=== PATIENT | male | born 1975 | race African-American/Black ===

== ENCOUNTER 2023-03-14 17:51 | Emergency (ER) | payer OTHER, SELFPAY ==
[2023-03-14 19:04] LABS: #Monocytes 0.2 10x3/uL (0.0-1.1); #Neutrophils 1.7 10x3/uL (1.5-8.4); %Basophils 1.2 % (0.0-2.0); %Eosinophils 0.6 % (0.0-6.0); %Lymphocytes 39.3 % (18.0-47.0); %Monocytes 6.6 % (0.0-10.0); Hematocrit 31.9 % (38.8-50.0); Hemoglobin 11.5 g/dL (13.5-17.5); Mean Corpuscular HGB CONC 36.1 g/dL (32.0-36.0); Mean Corpuscular Hemoglobin 36.3 pg (27.0-33.0); Mean Corpuscular Volume 100.6 fl (81.2-95.1); Mean Platelet Volume 10.9 fl (7.4-10.4); Platelet Count 105 10x3/uL (150-450); RBC Distribution Width 14.6 % (11.5-14.5); Red Blood Cell (RBC) Count 3.17 10x6/uL (4.32-5.72); White Blood Cell (WBC) Count 3.3 10x3/uL (3.5-10.5)
[2023-03-14 19:07] LABS: Acetaminophen Less than 10 mcg/mL (10.0-30.0); Alcohol 303.5 mg/dL (Less than 10); Salicylate Less than 8.0 mg/dL (15.0-30.0)
[2023-03-14 19:08] LABS: ALT (SGPT) 42 U/L (8-55); AST (SGOT) 104 U/L (5-34); Alkaline Phosphatase 79 U/L (40-110); Anion Gap 16 mmol/L (10-20); BUN (Urea Nitrogen) 13 mg/dL (8.9-20.6); Calc. Creatinine Clearance 0 mL/min (70-130); Calcium 8.6 mg/dL (7.8-10.44); Carbon Dioxide 28 mmol/L (22-29); Chloride 98 mmol/L (98-107); Estimated GFR 72; Globulin 3.3 g/dL (2.4-3.5); Glucose 86 mg/dL (70-105); Potassium 3.4 mmol/L (3.5-5.1); Protein, Total 7.3 g/dL (6.0-8.3); Sodium 139 mmol/L (136-145)
[2023-03-14 19:44] LABS: RBC Morph Comment Within Normal Limits
[2023-03-14 19:45] LABS: Platelet Adequacy Comment PLT clumps seen-LOW; Platelet Clumps MODERATE
[2023-03-14] MEDS ORDERED: chlordiazePOXIDE HCl 25 MG CAP ONE (20:52)
== END 2023-03-14 23:07 | disposition home or self-care (01) ==
LOC: CSHERS 17:51
DX: F10.129 Alcohol abuse with intoxication, unspecified (principal); I50.9 Heart failure, unspecified; F17.290 Nicotine dependence, other tobacco product, uncomplicated
CPT/HCPCS: 36415; 80053; 80307; 85025; 93005

== ENCOUNTER 2023-03-15 12:07 | Emergency (ER) | payer OTHER ==
[2023-03-15 13:27] LABS: %Lymphocytes 7.9 % (18.0-47.0); %Neutrophils 87.6 % (40.0-75.0); Hematocrit 31.4 % (38.8-50.0); Hemoglobin 11.1 g/dL (13.5-17.5); Mean Corpuscular HGB CONC 35.4 g/dL (32.0-36.0); Mean Corpuscular Hemoglobin 36.6 pg (27.0-33.0); Mean Corpuscular Volume 103.6 fl (81.2-95.1); Mean Platelet Volume 10.7 fl (7.4-10.4); Platelet Count 159 10x3/uL (130-400); RBC Distribution Width 15.1 % (11.5-14.5); Red Blood Cell (RBC) Count 3.03 10x6/uL (4.32-5.72); White Blood Cell (WBC) Count 7.1 10x3/uL (3.5-10.5)
[2023-03-15 13:28] LABS: #Monocytes 0.3 10x3/uL (0.0-1.1); #Neutrophils 6.2 10x3/uL (1.5-8.4); %Basophils 0.4 % (0.0-2.0); %Eosinophils 0.1 % (0.0-6.0); %Monocytes 3.9 % (0.0-10.0)
[2023-03-15] MEDS ORDERED: Phenylephrine 10 MG/ML VIAL ONE (13:31)
[2023-03-15] MEDS ORDERED: Phenylephrine 10 MG/ML VIAL IM SCH (13:45)
[2023-03-15 13:47] LABS: INR-International Normal Ratio 1.1; PTT 26.5 sec (22.0-33.0); Prothrombin Time 11.4 sec (9.5-12.1)
[2023-03-15 14:08] LABS: Acetaminophen Less than 10 mcg/mL (10.0-30.0); Carbon Dioxide 25 mmol/L (22-29); Chloride 99 mmol/L (98-107); Potassium 3.5 mmol/L (3.5-5.1); Salicylate Less than 8.0 mg/dL (15.0-30.0); Sodium 139 mmol/L (136-145)
[2023-03-15 14:09] LABS: ALT (SGPT) 38 U/L (8-55); AST (SGOT) 90 U/L (5-34); Albumin 3.9 g/dL (3.5-5.0); Alkaline Phosphatase 83 U/L (40-110); Anion Gap 19 mmol/L (10-20); BUN (Urea Nitrogen) 13 mg/dL (8.9-20.6); Calc. Creatinine Clearance 0 mL/min (70-130); Calcium 8.5 mg/dL (7.6-10.4); Estimated GFR 69; Globulin 3.2 g/dL (2.4-3.5); Glucose 88 mg/dL (70-105); Protein, Total 7.1 g/dL (6.0-8.3)
[2023-03-15] MEDS ORDERED: CEFAZOLIN 2 GM VIAL ONE (14:22)
[2023-03-15 14:27] LABS: Bilirubin Neg (Negative); Blood, Urine Negative (Negative); Clarity Clear (Clear); Glucose, Urine (Dipstick) Normal (Negative); Ketone, Urine Negative (Negative); Leukocyte Negative (Negative); Nitrite Negative (Negative); Protein, Urine (Dipstick) Negative (Neg-Trace); Specific Gravity, Urine 1.005 (1.005-1.030); Urobilinogen Normal mg/dL (Less than 2); pH, Urine 6.5 (5.0-9.0)
[2023-03-15] MEDS ORDERED: Morphine 2 MG/ML VIAL ONE (14:34)
[2023-03-15 14:35] LABS: Bacteria/HPF None Seen HPF (None Seen); CAUTI Indications for Culture Pelvic or flank pain; RBC/HPF None Seen HPF (0-3); Squamous Epithelial None Seen HPF (0-3); WBC/HPF None Seen HPF (0-3)
[2023-03-15 14:37] LABS: Amphetamine Not Detected (NotDetected); Barbiturates Screen Not Detected (NotDetected); Benzodiazepine Screen Not Detected (NotDetected); Cocaine Metabolite Screen Not Detected (NotDetected); Methadone Not Detected (NotDetected); Methamphetamine Not Detected (NotDetected); Opiate Screen Not Detected (NotDetected); Oxycodone Screen Not Detected (NotDetected); Phencyclidine (PCP) Not Detected (NotDetected); THC/Cannabinoid Screen Not Detected (NotDetected); Tricyclic Screen Not Detected (NotDetected); Urine Culture Reflex No No
== END 2023-03-15 16:40 | disposition home or self-care (01) ==
LOC: CSHERS 12:07
DX: N48.30 Priapism, unspecified (principal); I50.9 Heart failure, unspecified; F17.290 Nicotine dependence, other tobacco product, uncomplicated
CPT/HCPCS: 36415; 80053; 80306; 80307; 81001; 85025; 85610; 85730; 93005; 96365; 96372; J2272; J2370

== ENCOUNTER 2023-09-19 10:01 | Inpatient (IN) | payer OTHER, SELFPAY ==
[2023-09-19] MEDS ORDERED: Nitroglycerin 2% Ointment 1 INCH/1 GM Packet ONE (10:43)
[2023-09-19 11:02] LABS: #Eosinphils 0.1 10x3/uL (0.0-0.5); #Monocytes 0.3 10x3/uL (0.0-1.1); #Neutrophils 2.4 10x3/uL (1.5-8.4); %Basophils 0.9 % (0.0-2.0); %Lymphocytes 36.5 % (18.0-47.0); %Monocytes 7.6 % (0.0-10.0); %Neutrophils 52.8 % (40.0-75.0); Hematocrit 35.5 % (38.8-50.0); Mean Corpuscular HGB CONC 36.6 g/dL (32.0-36.0); Mean Corpuscular Hemoglobin 36.5 pg (27.0-33.0); Mean Corpuscular Volume 99.7 fl (81.2-95.1); Mean Platelet Volume 9.9 fl (7.4-10.4); Platelet Count 232 10x3/uL (150-450); RBC Distribution Width 14.6 % (11.5-14.5); Red Blood Cell (RBC) Count 3.56 10x6/uL (4.32-5.72); White Blood Cell (WBC) Count 4.5 10x3/uL (3.5-10.5)
[2023-09-19 11:15] LABS: ALT (SGPT) 19 U/L (8-55); AST (SGOT) 37 U/L (5-34); Albumin 4.1 g/dL (3.5-5.0); Alkaline Phosphatase 73 U/L (40-110); Anion Gap 16 mmol/L (10-20); BUN (Urea Nitrogen) 14 mg/dL (8.9-20.6); Bilirubin, Total 0.4 mg/dL (0.2-1.2); Calc. Creatinine Clearance 0 mL/min (70-130); Calcium 8.4 mg/dL (7.8-10.44); Carbon Dioxide 26 mmol/L (22-29); Chloride 96 mmol/L (98-107); Estimated GFR 49; Globulin 2.8 g/dL (2.4-3.5); Glucose 93 mg/dL (70-105); Potassium 3.2 mmol/L (3.5-5.1); Protein, Total 6.9 g/dL (6.0-8.3); Sodium 135 mmol/L (136-145)
[2023-09-19 11:19] LABS: Troponin I 0.012 ng/mL (< 0.028)
[2023-09-19] MEDS ORDERED: Morphine 4 MG/ML VIAL ONE (12:12)
[2023-09-19] MEDS ORDERED: Furosemide 40 MG (4 mL) VIAL ONE (12:13)
[2023-09-19] MEDS ORDERED: Aspirin Chewable 81 MG TAB ONE (12:13)
[2023-09-19] MEDS ORDERED: Nitroglycerin 0.4 MG TAB (25 Tab Bottle) SL PRN (13:58)
[2023-09-19] MEDS ORDERED: Nicotine 14 MG PATCH TD PRN (13:58)
[2023-09-19] MEDS ORDERED: Lorazepam 2 MG/ML VIAL IM PRN (14:01)
[2023-09-19 14:09] LABS: Troponin I 0.019 ng/mL (< 0.028)
[2023-09-19 14:18] LABS: Magnesium 1.5 mg/dL (1.6-2.6)
[2023-09-19] MEDS ORDERED: Magnesium Sulfate 4 GM in Sodium Chloride 0.9% 250 ML 250 ML IVPB SCH (14:30)
[2023-09-19 14:53] LABS: Amphetamine Not Detected (NotDetected); Barbiturates Screen Not Detected (NotDetected); Benzodiazepine Screen Not Detected (NotDetected); Cocaine Metabolite Screen Not Detected (NotDetected); Methadone Not Detected (NotDetected); Methamphetamine Not Detected (NotDetected); Opiate Screen Detected (NotDetected); Oxycodone Screen Not Detected (NotDetected); Phencyclidine (PCP) Not Detected (NotDetected); THC/Cannabinoid Screen Not Detected (NotDetected); Tricyclic Screen Not Detected (NotDetected)
[2023-09-19] MEDS: Magnesium 2 GM/50 ML(in water) 2 GM in Premix 1 BAG IVPB SCH (16:00)
[2023-09-19] MEDS: Thiamine HCl 200 MG/2 ML VIAL SLOW IVP SCH (16:02)
[2023-09-19] MEDS: Potassium Chloride 20 MEQ TAB PO SCH ×2 (16:04→16:05)
[2023-09-19] MEDS ORDERED: Communication Order-Pharmacy FS SCH (16:45)
[2023-09-19] MEDS: Carvedilol 6.25 MG TAB PO SCH (17:04)
[2023-09-19 17:45] LABS: Troponin I 0.015 ng/mL (< 0.028)
[2023-09-19] MEDS: Acetaminophen 325 MG TAB PO PRN (21:46)
[2023-09-19] MEDS: Nitroglycerin 2% Ointment 1 INCH/1 GM Packet TOP SCH (21:47)
[2023-09-19] MEDS: Atorvastatin Calcium 40 MG TAB PO SCH (21:47)
[2023-09-19] MEDS: Lorazepam 1 MG TAB PO PRN (21:49)
[2023-09-20 05:40] LABS: Hematocrit 38.4 % (38.8-50.0); Hemoglobin 13.5 g/dL (13.5-17.5); Mean Corpuscular HGB CONC 35.2 g/dL (32.0-36.0); Mean Corpuscular Hemoglobin 35.5 pg (27.0-33.0); Mean Corpuscular Volume 101.1 fl (81.2-95.1); Mean Platelet Volume 10.2 fl (7.4-10.4); Platelet Count 233 10x3/uL (150-450); White Blood Cell (WBC) Count 6.5 10x3/uL (3.5-10.5)
[2023-09-20] MEDS: Aspirin Chewable 81 MG TAB PO SCH (05:45)
[2023-09-20] MEDS: Folic Acid 1 MG TAB PO SCH (05:45)
[2023-09-20 05:49] LABS: PTT 28.6 sec (22.0-33.0); Prothrombin Time 10.8 sec (9.5-12.1)
[2023-09-20 05:53] LABS: MDiff Complete? YES
[2023-09-20 05:57] LABS: Band 1 % (5-11); Lymphocytes 14 % (21-51); Monocytes 3 % (0-10); Neutrophil 82 % (42-75)
[2023-09-20 05:59] LABS: Platelet Adequacy Comment Appears Adequate; Stomatocytes SLIGHT = 2-5 cells (100X) (0-1/hpf)
[2023-09-20 06:11] LABS: ALT (SGPT) 24 U/L (8-55); AST (SGOT) 65 U/L (5-34); Alkaline Phosphatase 93 U/L (40-110); Anion Gap 18 mmol/L (10-20); BUN (Urea Nitrogen) 15 mg/dL (8.9-20.6); Bilirubin, Total 1.1 mg/dL (0.2-1.2); Calc. Creatinine Clearance 72 mL/min (70-130); Calcium 9.1 mg/dL (7.8-10.44); Carbon Dioxide 24 mmol/L (22-29); Cardiac Risk 2.6 (Less than 4.5); Chloride 96 mmol/L (98-107); Cholesterol 201 mg/dl (< 200 Desired); Estimated GFR 52; Globulin 3.1 g/dL (2.4-3.5); Glucose 102 mg/dL (70-105); HDL Cholesterol 76 mg/dL (>60 Neg Risk); LDL Cholesterol, Calculated 111 mg/dL; Potassium 3.8 mmol/L (3.5-5.1); Protein, Total 7.1 g/dL (6.0-8.3); Sodium 134 mmol/L (136-145); Triglycerides 69 mg/dL (Less than 150)
[2023-09-20] MEDS: Furosemide 40 MG (4 mL) VIAL SLOW IVP SCH (06:15)
[2023-09-20] MEDS ORDERED: Heparin 10,000 UNITS/ 10 ML VIAL ONE ×3 (08:02→11:14)
[2023-09-20] MEDS ORDERED: Adenosine 6 mg (2 mL) VIAL ONE (08:02)
[2023-09-20] MEDS ORDERED: Nitroglycerin 50 MG/250 ML BOT 250 ML ONE (08:02)
[2023-09-20] MEDS ORDERED: Lidocaine 1% (PF) 30 ML VIAL ONE (08:02)
[2023-09-20] MEDS ORDERED: Enoxaparin 40 MG (0.4 mL) SYRINGE SC SCH (09:00)
[2023-09-20] MEDS ORDERED: Furosemide 20 MG (2 mL) VIAL SLOW IVP SCH (09:00)
[2023-09-20] MEDS ORDERED: Midazolam HCl 2 mg/2 ml Vial ONE (09:36)
[2023-09-20] MEDS ORDERED: fentaNYL 50 mcg/mL 1 mL Vial ONE (09:36)
[2023-09-20] MEDS ORDERED: Verapamil 5 MG/2 ML VIAL ONE (09:36)
[2023-09-20] MEDS ORDERED: TICAGRELOR 90 MG TABLET ONE (10:38)
[2023-09-20] MEDS ORDERED: Acetaminophen/Codeine 30-300mg Tablet PO PRN ×2 (11:09)
[2023-09-20] MEDS ORDERED: Nitroglycerin 0.4 MG TAB (25 Tab Bottle) SL PRN (11:09)
[2023-09-20] MEDS ORDERED: Sodium Chloride 0.9% 200 ML IV PRN (11:09)
[2023-09-20] MEDS: Furosemide 100 MG (10 mL) VIAL SLOW IVP SCH (13:21)
[2023-09-20] MEDS ORDERED: Lorazepam 1 MG TAB PO PRN (14:01)
[2023-09-20] MEDS: Multivit, Therapeutic 1 TAB PO SCH (16:36)
[2023-09-20] MEDS: TICAGRELOR 90 MG TABLET PO SCH (21:52)
[2023-09-20] MEDS: Sacubitril 24MG/Valsartan 26 MG TAB PO SCH (21:52)
[2023-09-20] MEDS: diphenhydrAMINE 25 MG CAP PO PRN (22:19)
[2023-09-21 04:26] VITALS: BMI 27.3
[2023-09-21 08:53] LABS: #Monocytes 0.4 10x3/uL (0.0-1.1); #Neutrophils 5.1 10x3/uL (1.5-8.4); %Basophils 0.5 % (0.0-2.0); %Eosinophils 0.2 % (0.0-6.0); %Lymphocytes 14.5 % (18.0-47.0); %Monocytes 6.2 % (0.0-10.0); %Neutrophils 78.3 % (40.0-75.0); Anion Gap 16 mmol/L (10-20); BUN (Urea Nitrogen) 20 mg/dL (8.9-20.6); Calc. Creatinine Clearance 66 mL/min (70-130); Calcium 9.8 mg/dL (7.8-10.44); Carbon Dioxide 26 mmol/L (22-29); Chloride 100 mmol/L (98-107); Estimated GFR 46; Glucose 111 mg/dL (70-105); Hematocrit 44.3 % (38.8-50.0); Hemoglobin 15.7 g/dL (13.5-17.5); Mean Corpuscular HGB CONC 35.4 g/dL (32.0-36.0); Mean Corpuscular Hemoglobin 36.2 pg (27.0-33.0); Mean Corpuscular Volume 102.1 fl (81.2-95.1); Mean Platelet Volume 10.8 fl (7.4-10.4); Platelet Count 231 10x3/uL (150-450); Potassium 3.5 mmol/L (3.5-5.1); RBC Distribution Width 14.8 % (11.5-14.5); Red Blood Cell (RBC) Count 4.34 10x6/uL (4.32-5.72); Sodium 138 mmol/L (136-145); White Blood Cell (WBC) Count 6.5 10x3/uL (3.5-10.5)
[2023-09-21] MEDS: Carvedilol 12.5 MG TAB PO SCH (10:11)
[2023-09-21] MEDS: Thiamine 100 MG TAB PO SCH (10:12)
[2023-09-21] MEDS ORDERED: Lorazepam 1 MG TAB PO PRN (14:01)
[2023-09-21 16:58] VITALS: BP 110/69; TEMP 97.4
[2023-09-21] MEDS ORDERED: Carvedilol 12.5 MG TAB PO SCH (17:00)
[2023-09-22] MEDS ORDERED: Lorazepam 0.5 MG TAB PO PRN (14:01)
[2023-09-22] MEDS ORDERED: Thiamine 100 MG TAB PO SCH (14:15)
== END 2023-09-21 17:57 | disposition home or self-care (01) | DRG 321 ==
LOC: CSHERS 10:01 → CSHERHOLD 12:21 → CSHTELE 15:19 → OBSVTOIN 09-20 12:51
PROVIDERS: ADMIT Family Medicine; ATTEND Family Medicine
PROC: 4A023N7 Measurement of Cardiac Sampling and Pressure, Left Heart, Percutaneous Approach (ICD-10-PCS; principal; 2023-09-20)
PROC: 027034Z Dilation of Coronary Artery, One Artery with Drug-eluting Intraluminal Device, Percutaneous Approach (ICD-10-PCS; 2023-09-20)
PROC: B2151ZZ Fluoroscopy of Left Heart using Low Osmolar Contrast (ICD-10-PCS; 2023-09-20)
PROC: B2111ZZ Fluoroscopy of Multiple Coronary Arteries using Low Osmolar Contrast (ICD-10-PCS; 2023-09-20)
DX: I25.110 Atherosclerotic heart disease of native coronary artery with unstable angina pectoris (principal); J96.01 Acute respiratory failure with hypoxia; I13.0 Hypertensive heart and chronic kidney disease with heart failure and stage 1 through stage 4 chronic kidney disease, or unspecified chronic kidney disease; N17.9 Acute kidney failure, unspecified; I50.22 Chronic systolic (congestive) heart failure; I42.0 Dilated cardiomyopathy; I25.2 Old myocardial infarction; F10.10 Alcohol abuse, uncomplicated; Z79.899 Other long term (current) drug therapy; Z95.5 Presence of coronary angioplasty implant and graft; Z82.49 Family history of ischemic heart disease and other diseases of the circulatory system; F17.210 Nicotine dependence, cigarettes, uncomplicated; E87.6 Hypokalemia; E83.42 Hypomagnesemia; N18.9 Chronic kidney disease, unspecified; Z79.82 Long term (current) use of aspirin; F17.290 Nicotine dependence, other tobacco product, uncomplicated
CPT/HCPCS: 36415; 71045; 80048; 80053; 80061; 80306; 83735; 83880; 84484; 85025; 85379; 85610; 85730; 92928; 92978; 93005; 93010; 93306; 93458; 94760; 96374; 96375; 96376; 99152; 99153; C1753; C1769; C1874; C1887; C9600; G0378; J0153; J1644; J1940; J2001; J2250; J2270; J3010; J3411; J3475